=== PATIENT | female | born 1935 | race African-American/Black ===

== ENCOUNTER 2019-01-12 14:24 | Emergency (ER) | payer MEDICARE, MEDICAID ==
[~2019-01-12] VITALS: Ht 157.5 cm; Wt 72.6 kg
[2019-01-12] MEDS ORDERED: NORVASC10 MG GT (14:30)
[2019-01-12] MEDS ORDERED: ELIQUIS2.5 MG GT (14:30)
[2019-01-12] MEDS ORDERED: LAMICTAL25 MG GT (14:30)
[2019-01-12] MEDS ORDERED: LIPITOR20 MG GT (14:30)
[2019-01-12] MEDS ORDERED: INSPRA25 MG GT (14:30)
[2019-01-12] MEDS ORDERED: METOPROLOL TART25 MG GT (14:30)
[2019-01-12] MEDS ORDERED: SENOKOT8.6 MG GT (14:30)
--- NOTE | 2019-01-12 14:30 | NUR ---
ED Nurse Note: Patient brought in by ambulance from [facility] due to witnessed focal motor seizure in bed. patient was given versed 5mg en route by EMS. Patient is noted to have musle tremors on left side.
[2019-01-12 14:31] VITALS: BP 105/58
--- NOTE | 2019-01-12 14:34 | Emergency Room Report ---
History of Present Illness General Chief Complaint: Seizure Source: Patient, Medical Record, EMS Present Illness HPI 83-year-old female presents with seizure prior to arrival, patient takes Lamictal daily, her last dose was yesterday, patient did not receive her Lamictal today, had a seizure of her left arm, lasted greater than 15 minutes, terminated with Versed given by EMS, patient is currently postictal, she is responsive, limited by her postictal state, collateral history is obtained from EMS and the medical record. Patient had a seizure prior to arrival, severity was severe, aggravated by not taking medications, alleviated by taking medications. Allergies: Coded Allergies: NSAIDS (NON-STEROIDAL ANTI-INFLAMMA (Verified Allergy, Unknown, 01/12/19) Patient History Limited by: medical condition - Postictal Past Medical History: see triage record Now: No Reviewed Nursing Documentation: PMH: Agreed; PSxH: Agreed Nursing Documentation-PMH Past Medical History: No History, Except For Hx Cardiac Problems: Yes - A-FIB, CHF Hx Neurological Problems: Yes - EPILEPSY, HEMIPLEGIA Hx Cerebrovascular Accident: Yes Review of Systems All Other Systems: limited - postictal Physical Exam Vital Signs Date Time Temp Pulse Resp B/P (MAP) Pulse Ox O2 Delivery O2 Flow Rate FiO2 01/12/19 14:21 97.9 75 18 94/55 (68) 99 Room Air Sp02 EP Interpretation: reviewed, normal General Appearance: no apparent distress, alert Head: normocephalic, atraumatic Eyes: bilateral eye PERRL, bilateral eye EOMI ENT: uvula midline, moist mucus membranes Neck: supple, thyroid normal, supple/symm/no masses Respiratory: lungs clear, no respiratory distress, no retraction, no accessory muscle use Cardiovascular #1: normal peripheral pulses, regular rate, rhythm, no edema, no gallop, no murmur Gastrointestinal: non tender, soft, no guarding, no rebound Musculoskeletal: normal inspection Neurologic: responsive - minimally responsive , other - contracted Skin: no rash, warm/dry Procedures Critical Care Time Critical Care Time Given the critical condition in which the patient arrived, the patient was immediately assessed by myself and the nurse, and cardiac monitoring initiated due to the potential for rapid decompensation of the patient's clinical condition. During the course of the patient's stay, I spent a considerable amount of time at the bedside performing serial re-evaluations of the patient's hemodynamic and clinical status because of the recognized potential threat to life or limb in this condition. I then had a chance to review not only all of the available current laboratory and radiographic studies obtained today, but I also reviewed old records available to me at the time. Additionally, any ancillary information available including events assistant records were reviewed. Sequential vital signs were obtained. Critical Care time of 30 minutes was performed exclusive of billable procedures. Patient seized, requiring ativan and lamictal. Multiple reevaluations to ensure airway protection. Dispo to [place] Medical Decision Making Diagnostic Impression: Primary Impression: Seizure disorder Additional Impressions: Epileptic seizure, generalized Pneumonia UTI (urinary tract infection) Lactic acidosis ER Course Reevaluation 2:37 PM, patient found to be twitching her left face, patient most likely having another seizure, will provide patient with Ativan 2 mg, Lamictal 100 mg 2:42pm pt no longer seizing Patient will be transferred to [place], spoke with Dr. Albert at 4pm. Patient with a gag, withdrawing from pain, patient most likely minimally responsive from old stroke. Patient found to have a pneumonia and uti, abx started Laboratory Tests Test 01/12/19 14:50 01/12/19 15:20 White Blood Count 8.9 K/UL (4.8-10.8) Red Blood Count 6.39 M/UL (4.20-5.40) H Hemoglobin 16.9 G/DL (12.0-16.0) H Hematocrit 53.9 % (37.0-47.0) H Mean Corpuscular Volume 84 FL (80-99) Mean Corpuscular Hemoglobin 26.4 PG (27.0-31.0) L Mean Corpuscular Hemoglobin Concent 31.3 G/DL (32.0-36.0) L Red Cell Distribution Width 15.9 % (11.6-14.8) H Platelet Count 286 K/UL (150-450) Mean Platelet Volume 9.2 FL (6.5-10.1) Neutrophils (%) (Auto) 83.5 % (45.0-75.0) H Lymphocytes (%) (Auto) 11.0 % (20.0-45.0) L Monocytes (%) (Auto) 4.4 % (1.0-10.0) Eosinophils (%) (Auto) 0.5 % (0.0-3.0) Basophils (%) (Auto) 0.7 % (0.0-2.0) Prothrombin Time 11.0 SEC (9.30-11.50) Prothrombin Time INR 1.0 (0.9-1.1) PTT 30 SEC (23-33) Sodium Level 141 MMOL/L (136-145) Potassium Level 3.7 MMOL/L (3.5-5.1) Chloride Level 105 MMOL/L (98-107) Carbon Dioxide Level 25 MMOL/L (21-32) Anion Gap 11 mmol/L (5-15) Blood Urea Nitrogen 23 mg/dL (7-18) H Creatinine 1.3 MG/DL (0.55-1.30) Estimate Glomerular Filtration Rate mL/min (>60) Glucose Level 129 MG/DL (74-106) H Lactic Acid Level 3.10 mmol/L (0.4-2.0) H Calcium Level 9.6 MG/DL (8.5-10.1) Phosphorus Level 3.7 MG/DL (2.5-4.9) Magnesium Level 2.2 MG/DL (1.8-2.4) Total Bilirubin 0.5 MG/DL (0.2-1.0) Aspartate Amino Transferase (AST) 53 U/L (15-37) H Alanine Aminotransferase (ALT) 74 U/L (12-78) Alkaline Phosphatase 142 U/L (46-116) H Total Creatine Kinase 126 U/L (26-308) Creatine Kinase MB 7.8 NG/ML (0.0-3.6) H Creatine Kinase MB Relative Index 6.1 Troponin I 0.112 ng/mL (0.000-0.056) Pro-B-Type Natriuretic Peptide 3833 pg/mL (0-125) H Total Protein 7.3 G/DL (6.4-8.2) Albumin 2.5 G/DL (3.4-5.0) L Globulin 4.8 g/dL Albumin/Globulin Ratio 0.5 (1.0-2.7) L Lipase 137 U/L (73-393) Urine Color Yellow Urine Appearance Cloudy Urine pH 6 (4.5-8.0) Urine Specific [place] 1.015 (1.005-1.035) Urine Protein 4+ (NEGATIVE) H Urine Glucose (UA) Negative (NEGATIVE) Urine Ketones Negative (NEGATIVE) Urine Blood 2+ (NEGATIVE) H Urine Nitrite Negative (NEGATIVE) Urine Bilirubin Negative (NEGATIVE) Urine Urobilinogen 1 MG/DL (0.0-1.0) H Urine Leukocyte Esterase 1+ (NEGATIVE) H Urine RBC 5-10 /HPF (0 - 2) H Urine WBC 2-4 /HPF (0 - 2) Urine Squamous Epithelial Cells Few /LPF (NONE/OCC) Urine Amorphous Sediment Many /LPF (NONE) H Urine Bacteria Moderate /HPF (NONE) H EKG Diagnostic Results EKG Time: 14:35 EP Interpretation: Ventricular paced, rate 60, left bundle branch block, neg sgarbossa criteri Rate: normal Rhythm: other - v paced ST Segments: other - LBBB, neg sgarbossa ASA given to the pt in ED: No Rhythm Strip Diag. Results Rhythm Strip Time: 14:42 EP Interpretation: yes Rate: 60 Rhythm: other - v paced Chest X-Ray Diagnostic Results Chest X-Ray Diagnostic Results : Chest X-Ray Ordered: Yes # of Views/Limited/Complete: 1 View Indication: Other - ams EP Interpretation: Yes Interpretation: other - right lobe consolidation Impression: Other - right lobe pneumonia Electronically Signed by: Rustam Majano MD Last Vital Signs Date Time Temp Pulse Resp B/P (MAP) Pulse Ox O2 Delivery O2 Flow Rate FiO2 01/12/19 14:31 97.9 60 19 105/58 99 Room Air Disposition: XFER [facility] Condition: Stable Rustam Majano MD Jan 12, 2019 14:34
[2019-01-12] MEDS ORDERED: LORazepam Inj 2mg/ml 1ml ONE (14:37)
[2019-01-12] MEDS ORDERED: LORazepam Inj 2mg/ml 1ml IV ONE (14:45)
[2019-01-12 15:01] LABS: BASOPHILS % (AUTO) 0.7 % (0.0-2.0); EOSINOPHILS % (AUTO) 0.5 % (0.0-3.0); HEMATOCRIT 53.9 % (37.0-47.0); HEMOGLOBIN 16.9 G/DL (12.0-16.0); MEAN CORPUSCULAR VOLUME 84 FL (80-99); MONOCYTES % (AUTO) 4.4 % (1.0-10.0); NEUTROPHILS % (AUTO) 83.5 % (45.0-75.0); PLATELET COUNT 286 K/UL (150-450); RED BLOOD COUNT 6.39 M/UL (4.20-5.40); RED CELL DISTRIBUTION WIDTH 15.9 % (11.6-14.8); WHITE BLOOD COUNT 8.9 K/UL (4.8-10.8)
[2019-01-12 15:16] LABS: ANION GAP 11 mmol/L (5-15); BLOOD UREA NITROGEN 23 mg/dL (7-18); CALCIUM 9.6 MG/DL (8.5-10.1); CARBON DIOXIDE 25 MMOL/L (21-32); CHLORIDE 105 MMOL/L (98-107); CREATININE 1.3 MG/DL (0.55-1.30); POTASSIUM 3.7 MMOL/L (3.5-5.1); SODIUM 141 MMOL/L (136-145)
[2019-01-12 15:28] LABS: ALANINE AMINOTRANSFERASE 74 U/L (12-78); ALBUMIN 2.5 G/DL (3.4-5.0); ALBUMIN/GLOBULIN RATIO 0.5 (1.0-2.7); ALKALINE PHOSPHATASE 142 U/L (46-116); ASPARTATE AMINO TRANSFERASE 53 U/L (15-37); BILIRUBIN,TOTAL 0.5 MG/DL (0.2-1.0); CKMB 7.8 NG/ML (0.0-3.6); CREATINE KINASE 126 U/L (26-308); PHOSPHORUS 3.7 MG/DL (2.5-4.9)
--- NOTE | 2019-01-12 15:29 | Diagnostic Imaging Report ---
Indications: Dizziness and seizure Technique: Spiral acquisitions obtained through the brain. Angled axial and coronal 5 x 5 mm slices were reconstructed. Total dose length product 1530.91 mGycm. CTDI vol(s) 70.38 mGy. Dose reduction achieved using automated exposure control Comparison: None. Findings: There is a large area of encephalomalacia involving the left occipital and posterior parietal lobes. There is also extensive low-attenuation throughout the deep white matter bilaterally, consistent with severe chronic microvascular ischemic changes. There is ex vacuo dilatation of the posterior right lateral ventricle in addition to generalized age-related enlargement of the ventricles and extra axial CSF spaces. There is also encephalomalacia of the right cerebellar hemisphere with ex vacuo dilatation of the fourth ventricle. Small focus of encephalomalacia is seen in the left posterior parietal lobe. There is an old lacunar infarct in the right basal ganglia There is a patent cavum septum pellucidum and cavum vergae. No acute intracranial hemorrhage or edema. No mass effect nor midline shift. The calvarium is intact. Visualized orbits and sinuses are unremarkable. The mastoids are clear. 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 Old infarcts also seen within the left parietal lobe, right basal ganglia and right cerebellum Extensive chronic deep white matter small vessel ischemic change Negative for acute intracranial bleed or mass effect The CT scanner at [facility] is accredited by the [employer] and the scans are performed using protocols designed to limit radiation exposure to as low as reasonably achievable to attain images of sufficient resolution adequate for diagnostic evaluation.
[2019-01-12 15:32] LABS: APPEARANCE,URINE CLOUDY; BILIRUBIN, URINE NEGATIVE (NEGATIVE); GLUCOSE, URINE (UA) NEGATIVE (NEGATIVE); KETONES,URINE NEGATIVE (NEGATIVE); LEUKOCYTE ESTERASE ,URINE 1+ (NEGATIVE); NITRITE,URINE NEGATIVE (NEGATIVE); PH,URINE 6 (4.5-8.0); PROTEIN,URINE 4+ (NEGATIVE); UROBILINOGEN,URINE 1 MG/DL (0.0-1.0)
[2019-01-12 15:35] LABS: COLOR,URINE YELLOW
[2019-01-12] MEDS ORDERED: Cefepime HCl 2 GM in D5W 55 ML IVPB ONE (16:00)
[2019-01-12] MEDS ORDERED: Vancomycin 1 GM in NS 275 ML IVPB ONE (16:00)
--- NOTE | 2019-01-12 16:28 | Diagnostic Imaging Report ---
Indication: Chest pain Technique: One view of the chest Comparison: none Findings: Heart is enlarged. Lungs pleural spaces are clear. There is a left chest bifocal pacemaker. Impression: No acute process
--- NOTE | 2019-01-12 16:29 | NUR ---
ED Nurse Note: [phone] Ivonne (son)
[2019-01-12 17:30] VITALS: BP 113/66
[2019-01-12] MEDS ORDERED: levETIRAcetam 1,000mg/NS100ml 100 ML IVPB ONE (17:45)
[2019-01-12 18:17] VITALS: BP 113/65
--- NOTE | 2019-01-12 18:36 | NUR ---
Patient accepted to [facility] Accepting is call report [phone] [id number]
--- NOTE | 2019-01-12 18:57 | NUR ---
ED Nurse Note: Ian KUHN will be receiving report, Ian KUHN is not available at this time.
--- NOTE | 2019-01-12 19:05 | NUR ---
HAND-OFF: Report given to Kelly KUHN .
--- NOTE | 2019-01-12 19:09 | NUR ---
ED Nurse Note: report received from BAM Hill
[2019-01-12 19:24] VITALS: BP 109/69
--- NOTE | 2019-01-12 19:24 | NUR ---
ER DISCHARGE NOTE: Patient is was picked up by [facility] ambulance unit # [id number]. [facility] [place] [facility] report was given to BAM Sosa. Pt VSS bp 109/69, 98.0, 62,
--- NOTE | 2019-01-12 19:25 | NUR ---
ED Nurse Note: report given to Ian KUHN, ambulance is here for the patient, endorsed all plan of care to Ian KUHN, as well as to Kelly. BAM.
== END 2019-01-12 19:24 | disposition short-term general hospital (02) ==
LOC: EDBD 14:24 → EMR 14:52
DX: G40.909 Epilepsy, unspecified, not intractable, without status epilepticus (principal); J18.9 Pneumonia, unspecified organism; N39.0 Urinary tract infection, site not specified; I48.91 Unspecified atrial fibrillation; I50.9 Heart failure, unspecified; I69.359 Hemiplegia and hemiparesis following cerebral infarction affecting unspecified side; Z88.6 Allergy status to analgesic agent; E87.2 Acidosis; Z79.899 Other long term (current) drug therapy
CPT/HCPCS: 36415; 70450; 71045; 80053; 81003; 82550; 82553; 83605; 83690; 83735; 83880; 84100; 84484; 85025; 85610; 85730; 87040; 87086; 93005; 96361; 96365; 96367; 96375; 99291; J1953; J3370; J7050

== ENCOUNTER 2019-11-06 22:36 | Inpatient (IN) | payer MEDICARE, MEDICAID ==
[~2019-11-06] VITALS: Ht 160 cm; Wt 72.6 kg
[~2019-11-06 22:36] MED LIST: ALBUTEROL2.5 MG/3 M INH; DOCUSATE SODIU100 MG ORAL; ELIQUIS2.5 MG GT; FUROSEMIDE20 M1 ORAL; INSPRA25 MG GT; LAMICTAL25 MG GT; LIPITOR20 MG GT; METOPROLOL TART25 MG GT; NORVASC10 MG GT; SENOKOT8.6 MG GT
--- NOTE | 2019-11-06 22:40 | NUR ---
ED Nurse Note: BROUGHT IN BY SAYDA RA 60 FROM [facility] C/O RESP DISTRESS SINCE 2199. PER EMS, PT SATTING AT 88% RA AT FACILITY. PT IS PRESENTED TO ED WITH NRB 15L BY EMS WITH SPO2 96%. TEMP AT BEDSIDE 102.5. ERMD MADE AWARE. BS 336. AAOX1, NONAMBULATORY.
[2019-11-06 22:43] VITALS: BP 141/68
[2019-11-06] MEDS ORDERED: ACETAMINOPHEN500 M5 GT (22:53)
[2019-11-06] MEDS ORDERED: SYMLIN600 MCG/1 SUBQ (22:53)
--- NOTE | 2019-11-06 22:55 | NUR ---
SPOKE WITH BAM VERDE OF [facility]. ASKED RN TO FAX POLST. ACCORDING TO MEHRE[facility], POLST CANNOT BE FOUND AND CODE IS UNKNOWN; STATES THAT PATIENT IS ASSUMED FULLCODE.
--- NOTE | 2019-11-06 22:55 | NUR ---
ED Nurse Note: BLOOD AND URINE COLLECTED AND SENT TO LAB. PATIENT CHANGED AND CLEANED INTO GOWN AND ON MONITOR IN DROPLET PRECAUTION ISOLATION. XR AT BEDSIDE. ABG DRAWN BY RT AT BEDSIDE.
[2019-11-06 23:00] VITALS: BP 132/66
[2019-11-06] MEDS ORDERED: Acetaminophen 650mg/20.3ml GT ONE (23:00)
--- NOTE | 2019-11-06 23:00 | NUR ---
ED Nurse Note: PER ERMD ORDER, PLACED PT ON VENTURI MASK BY RT ON 14 L SATTING AT 97%.
[2019-11-06] MEDS ORDERED: Cefepime HCl 2 GM in D5W 55 ML IVPB ONE (23:15)
[2019-11-06] MEDS ORDERED: Vancomycin 1.5 GM in NS 275 ML IVPB ONE (23:15)
--- NOTE | 2019-11-06 23:18 | Emergency Room Report ---
History of Present Illness General Chief Complaint: Dyspnea/Respdistress Source: Patient Present Illness HPI Patient was sent to the emergency room by nursing facility via paramedics With complaints of shortness of breath Patient was found to be short of breath at the nursing facility There was complaints of some questionable cough Patient has multiple comorbidities Does not provide any history And this does limit the history of present illness there was no reports of vomiting or diarrhea Patient was found to be febrile here Patient is from a nursing facility with multiple covid-19 cases Allergies: Coded Allergies: NSAIDS (NON-STEROIDAL ANTI-INFLAMMA (Verified Allergy, Unknown, 01/12/19) COVID-19 Screening Contact w/high risk pt: Yes Recent Travel to affected area: No Experienced COVID-19 symptoms?: Yes COVID-19 symptoms experienced: Fever (T>100.4F or >38C), Shortness of Breath COVID-19 Testing performed CLIPPING MARKER: No COVID-19 Screening: PUI COVID-19 Patient History Past Medical History: see triage record Reviewed Nursing Documentation: PMH: Agreed; PSxH: Agreed Nursing Documentation-PMH Past Medical History: No History, Except For Hx Cardiac Problems: Yes - CKD, A FIB Hx Hypertension: Yes Hx COPD: Yes Hx Neurological Problems: Yes - EPILEPSY, HEMIPLEGIA Hx Cerebrovascular Accident: Yes Hx Seizures: Yes Review of Systems All Other Systems: limited - Other than the ones mentioned in the history of present illness all others are reviewed however they do stay limited due to the patient's mental status Physical Exam Vital Signs Date Time Temp Pulse Resp B/P (MAP) Pulse Ox O2 Delivery O2 Flow Rate FiO2 11/06/19 22:37 99.3 60 32 141/68 (92) 97 Non-Rebreather 15.0 Sp02 EP Interpretation: reviewed, normal General Appearance: other - Tachypneic Head: normocephalic, atraumatic Eyes: bilateral eye PERRL ENT: EOM grossly intact, normal pharynx Neck: supple Respiratory: crackles, other - Tachypneic, crackles bilaterally Cardiovascular #1: regular rate, rhythm Gastrointestinal: non tender, soft, other - Feeding tube in place Musculoskeletal: other - Patient does not follow commands however moves upper extremity without focal deficit Neurologic: responsive - to physical stimuli Skin: other - Decubitus ulcer Lymphatic: no adenopathy Procedures Critical Care Time Critical Care Time 50 minutes for multiple re-evaluations critical status with respiratory distress concerning for decompensation and possible failure not including any procedural time Medical Decision Making Diagnostic Impression: Primary Impression: Pneumonia Additional Impression: CHF (congestive heart failure) ER Course Patient is a fairly complex patient with multiple differential to consideration including but not limited to cardiac cardiopulmonary and vascular emergencies Other infectious process also entertained patient is from nursing facility with known covid-19 infections Patient will have further testing performed for that is doing significantly better with oxygenation Please note that the patient has history of severe cardiomyopathy CHF also shows some evidence of CHF acutely Further hydration is limited And the sepsis protocol is limited as I feel this would be detrimental to the patient's cardiac health And could worsen the symptoms Patient receiving IV antibiotics and admitted for further care, Labs Test 11/06/19 22:43 11/06/19 22:50 11/06/19 23:00 11/07/19 00:00 Arterial Blood pH 7.512 (7.350-7.450) Arterial Blood Partial Pressure CO2 31.3 mmHg (35.0-45.0) Arterial Blood Partial Pressure O2 71.3 mmHg (75.0-100.0) Arterial Blood HCO3 24.5 mmol/L (22.0-26.0) Arterial Blood Oxygen Saturation 94.3 % (95-100) Arterial Blood Base Excess 2.2 (-2-2) Leon Test Positive White Blood Count 15.3 K/UL (4.8-10.8) Red Blood Count 5.08 M/UL (4.20-5.40) Hemoglobin 13.3 G/DL (12.0-16.0) Hematocrit 42.8 % (37.0-47.0) Mean Corpuscular Volume 84 FL (80-99) Mean Corpuscular Hemoglobin 26.2 PG (27.0-31.0) Mean Corpuscular Hemoglobin Concent 31.1 G/DL (32.0-36.0) Red Cell Distribution Width 17.0 % (11.6-14.8) Platelet Count 217 K/UL (150-450) Mean Platelet Volume 9.4 FL (6.5-10.1) Neutrophils (%) (Auto) % (45.0-75.0) Lymphocytes (%) (Auto) % (20.0-45.0) Monocytes (%) (Auto) % (1.0-10.0) Eosinophils (%) (Auto) % (0.0-3.0) Basophils (%) (Auto) % (0.0-2.0) Prothrombin Time 11.2 SEC (9.30-11.50) Prothromb Time International Ratio 1.0 (0.9-1.1) Sodium Level 143 MMOL/L (136-145) Potassium Level 5.0 MMOL/L (3.5-5.1) Chloride Level 104 MMOL/L (98-107) Carbon Dioxide Level 30 MMOL/L (21-32) Anion Gap 9 mmol/L (5-15) Blood Urea Nitrogen 77 mg/dL (7-18) Creatinine 2.2 MG/DL (0.55-1.30) Estimat Glomerular Filtration Rate 25.9 mL/min (>60) Glucose Level 332 MG/DL (74-106) Lactic Acid Level 3.40 mmol/L (0.4-2.0) 3.40 mmol/L (0.66-2.22) Calcium Level 8.7 MG/DL (8.5-10.1) Total Bilirubin 0.8 MG/DL (0.2-1.0) Aspartate Amino Transf (AST/SGOT) 155 U/L (15-37) Alanine Aminotransferase (ALT/SGPT) 103 U/L (12-78) Alkaline Phosphatase 197 U/L (46-116) Total Creatine Kinase 158 U/L (26-308) Creatine Kinase MB 1.0 NG/ML (0.0-3.6) Creatine Kinase MB Relative Index 0.6 Troponin I 0.341 ng/mL (0.000-0.056) Pro-B-Type Natriuretic Peptide 58688 pg/mL (0-125) Total Protein 7.2 G/DL (6.4-8.2) Albumin 1.5 G/DL (3.4-5.0) Globulin 5.7 g/dL Albumin/Globulin Ratio 0.3 (1.0-2.7) Lipase 288 U/L (73-393) Urine Color Yellow Urine Appearance Cloudy Urine pH 6 (4.5-8.0) Urine Specific [place] 1.010 (1.005-1.035) Urine Protein 4+ (NEGATIVE) Urine Glucose (UA) 2+ (NEGATIVE) Urine Ketones Negative (NEGATIVE) Urine Blood 3+ (NEGATIVE) Urine Nitrite Negative (NEGATIVE) Urine Bilirubin Negative (NEGATIVE) Urine Urobilinogen Normal MG/DL (0.0-1.0) Urine Leukocyte Esterase 3+ (NEGATIVE) Urine RBC 2-4 /HPF (0 - 2) Urine WBC Tntc /HPF (0 - 2) Urine Squamous Epithelial Cells Few /LPF (NONE/OCC) Urine Bacteria Many /HPF (NONE) EKG Diagnostic Results Rate: normal Rhythm: other - ventricular paced ST Segments: other - Nonspecific changes prolonged QRS consistent with paced rhythm Rhythm Strip Diag. Results EP Interpretation: yes Rate: 60 Rhythm: other - v-paced Chest X-Ray Diagnostic Results Chest X-Ray Diagnostic Results : Chest X-Ray Ordered: Yes # of Views/Limited/Complete: 1 View Indication: Shortness of Breath EP Interpretation: Yes Interpretation: other - Cardiomegaly, pulmonary congestion, bilateral markings question infiltrate versus effusion Impression: Other - Bilateral markings pulmonary congestion, consider infiltrate versus other Electronically Signed by: Sterling Pope DO Last Vital Signs Date Time Temp Pulse Resp B/P (MAP) Pulse Ox O2 Delivery O2 Flow Rate FiO2 11/06/19 22:59 60 31 Non-Rebreather 15.0 11/06/19 22:43 102.5 141/68 99 Status: improved Disposition: ADMITTED INPATIENT Condition: Serious Referrals: Jim Ellis MD (PCP) Sterling Pope DO November 06, 2019 23:18
[2019-11-06 23:19] LABS: HEMATOCRIT 42.8 % (37.0-47.0); HEMOGLOBIN 13.3 G/DL (12.0-16.0); MEAN CORPUSCULAR VOLUME 84 FL (80-99); PLATELET COUNT 217 K/UL (150-450); RED BLOOD COUNT 5.08 M/UL (4.20-5.40); WHITE BLOOD COUNT 15.3 K/UL (4.8-10.8)
[2019-11-06 23:20] LABS: APPEARANCE,URINE CLOUDY; BILIRUBIN, URINE NEGATIVE (NEGATIVE); GLUCOSE, URINE (UA) 2+ (NEGATIVE); KETONES,URINE NEGATIVE (NEGATIVE); LEUKOCYTE ESTERASE ,URINE 3+ (NEGATIVE); NITRITE,URINE NEGATIVE (NEGATIVE); PH,URINE 6 (4.5-8.0); PROTEIN,URINE 4+ (NEGATIVE); UROBILINOGEN,URINE NORMAL MG/DL (0.0-1.0)
[2019-11-06 23:22] LABS: COLOR,URINE YELLOW
[2019-11-06 23:38] LABS: ANION GAP 9 mmol/L (5-15); BLOOD UREA NITROGEN 77 mg/dL (7-18); CALCIUM 8.7 MG/DL (8.5-10.1); CARBON DIOXIDE 30 MMOL/L (21-32); CHLORIDE 104 MMOL/L (98-107); CREATININE 2.2 MG/DL (0.55-1.30); SODIUM 143 MMOL/L (136-145)
[2019-11-06 23:52] LABS: ALANINE AMINOTRANSFERASE 103 U/L (12-78); ALBUMIN 1.5 G/DL (3.4-5.0); ALBUMIN/GLOBULIN RATIO 0.3 (1.0-2.7); ALKALINE PHOSPHATASE 197 U/L (46-116); ASPARTATE AMINO TRANSFERASE 155 U/L (15-37); BILIRUBIN,TOTAL 0.8 MG/DL (0.2-1.0); CREATINE KINASE 158 U/L (26-308)
[2019-11-07] VITALS (7 sets, daily range): BP systolic 101–132; BP diastolic 53–91
--- NOTE | 2019-11-07 00:17 | NUR ---
ED Nurse Note: GAVE REPORT TO ARIELLA KUHN.
--- NOTE | 2019-11-07 00:20 | NUR ---
ED Nurse Note: LACTIC REFLEX DRAWN AND SENT TO LAB
--- NOTE | 2019-11-07 00:30 | NUR ---
TRANSFER TO FLOOR: Patient transferred to [facility] via gurney in stable condition via transport 19 protocol as ordered, per dr. Mackey . Report given to ARIELLA KUHN.
--- NOTE | 2019-11-07 00:30 | NUR ---
NURSE NOTES: received reprot from BAM Garcia of ED. Patient awake in bed, AO x 1, afebrile, mouth breather noted. On venturi mask at 14lpm saturating 96-97 %. Pt eyes and open and able to track people around her but non verbal. With left hand and right FA 20 gauges SL patent, flush and asymptomatic. With Gtube at lower quadrant stabilize and dressing intact. With walsh catheter to urine bag draining well. VS are stable for now. Needs were attended. Bed is locked and Padded side rails for seizure precaution. Alarm is on. Call lguiht within reach. Pt was asleep when LN eft the room. Continue plan of care of the patient
[2019-11-07] MEDS ORDERED: Acetaminophen 650mg/20.3ml GT PRN (02:15)
[2019-11-07] MEDS ORDERED: Albuterol ud Inhalation HHN PRN (02:15)
--- NOTE | 2019-11-07 04:40 | NUR ---
HAND-OFF: Report given to BAM Francis.
[2019-11-07] MEDS: Piperacillin/Tazobactam 3.375 GM in NS 110 ML IVPB SCH ×2 (04:57→16:36)
--- NOTE | 2019-11-07 05:00 | NUR ---
NURSE NOTES: No acute distress noted. On venturi mask, 14L, sat at 96%. Gt running at 20cc/hr, goal is 60, pt is tolerating feeding, no residual at this time. IV on R FA 20G, running NS at 125cc/hr. Will continue to monitor.
[2019-11-07] MEDS: NovoLOG Insulin Flexpen SUBQ SCH ×4 (05:33→21:13)
[2019-11-07 05:44] LABS: HEMATOCRIT 37.7 % (37.0-47.0); HEMOGLOBIN 12.7 G/DL (12.0-16.0); MEAN CORPUSCULAR VOLUME 80 FL (80-99); PLATELET COUNT 211 K/UL (150-450); RED BLOOD COUNT 4.73 M/UL (4.20-5.40); RED CELL DISTRIBUTION WIDTH 14.8 % (11.6-14.8); WHITE BLOOD COUNT 14.5 K/UL (4.8-10.8)
[2019-11-07 06:21] LABS: ALANINE AMINOTRANSFERASE 91 U/L (12-78); ALBUMIN 1.4 G/DL (3.4-5.0); ALBUMIN/GLOBULIN RATIO 0.3 (1.0-2.7); ALKALINE PHOSPHATASE 169 U/L (46-116); ANION GAP 10 mmol/L (5-15); ASPARTATE AMINO TRANSFERASE 125 U/L (15-37); BILIRUBIN,TOTAL 0.6 MG/DL (0.2-1.0); BLOOD UREA NITROGEN 77 mg/dL (7-18); CALCIUM 8.4 MG/DL (8.5-10.1); CARBON DIOXIDE 29 MMOL/L (21-32); CHLORIDE 107 MMOL/L (98-107); CREATININE 2.2 MG/DL (0.55-1.30); POTASSIUM 4.2 MMOL/L (3.5-5.1); SODIUM 146 MMOL/L (136-145)
[2019-11-07] MEDS ORDERED: NovoLOG Insulin Flexpen SUBQ SCH (06:30)
--- NOTE | 2019-11-07 07:05 | NUR ---
NURSE NOTES: Left a message to Dr. Gaona, regarding trending up troponin. Pt A-paced. No acute distress noted at this time. Will continue to monitor.
--- NOTE | 2019-11-07 07:20 | NUR ---
NURSE NOTES: RECEIVED REPORT FROM JOSE KUHN OF [employer]NER STAFF. RECEIVED PT ON DROPLET PRECAUTION ROOM ,R/O FOR COVID-19. RECEIVED PT WITH HOB ELEVATED 45 DEGREE NON-VERBAL USING VENTI-MASK @ 40% .PT SAT 96% AT THIS TIME. PT WITH GTF PATENT RECEIVING GLUCERNA 1.2 @ 20CC/HRS TOLERATING WELL,NO RESIDUAL NOTED AT THIS TIME. FULL BODY ASSESSMENT DONE. PT REPOSITIONED IN BED Q 2HRS TO PROVIDE COMFORT AND TO PREVENT SKIN BRODY DOWN.NO ACUTE DISTRESS NOTED AT THIS TIME . WILL CONT TO MONITOR.
--- NOTE | 2019-11-07 07:31 | NUR ---
HAND-OFF: Report given to BAM Katz. Addendum: 11/07/19 at 0732 by Joie Gandhi RN Note done by Joie Gandhi.
--- NOTE | 2019-11-07 08:07 | NUR ---
RD ASSESSMENT & RECOMMENDATIONS SEE CARE ACTIVITY FOR COMPLETE ASSESSMENT DAILY ESTIMATED NEEDS: Needs based on Pulmonary/ 51kg abw 25-30 kcals/kg 9168-0794 total kcals 1.25-1.5 g protein/kg 63-76 g total protein 25-30 mL/kg 0725-2453 total fluid mLs NUTRITION DIAGNOSIS: * Swallowing difficulty R/T dysphagia as evidenced by PEG dep. (CURRENT TF: Glucerna 1.2 @ 25ml/hr x 24 hrs) ENTERAL NUTRITION RECOMMENDATIONS: Glucerna 1.2 @ 50ml/hr x 24 hrs to provide 1200ml, 1440kcal, 72g prot, 966ml free water * Increase goal rate to 50ml/hr x 24 hrs * HOB over 30 degrees * Water flush of 130ml q 6 hrs ---- With improved BG rec to DC Glucerna 1.2 and start Jevity 1.2 w/ rate of 50ml/hr x24 hrs to provide 1440 kcal, 67g prot. ADDITIONAL RECOMMENDATIONS: - Maintain calibrated bed scale wts - Rec HgA1C, pt on non-carb control formula TOBACCO CUTTER - TF recs as above - F/up w/ WC eval: add ORLY BID via GT when tolerating TF at goal - Monitor lytes on lasix, replete as needed . .
[2019-11-07] MEDS: Eliquis 2.5mg tablet GT SCH ×2 (09:27→16:41)
[2019-11-07] MEDS: Docusate 100mg/10ml Liq GT SCH ×3 (09:27→16:36)
--- NOTE | 2019-11-07 09:31 | History & Physical ---
History and Physical History & Physicial 83 year old Patient was admitted from the ER with shortness of breath Patient at SNF + COVID exposure Patient has multiple comorbidities limited history CHF on imaging Allergies: NSAIDS (NON-STEROIDAL ANTI-INFLAMMA (Verified Allergy, Unknown, 01/12/19) Past Medical History: CKD, AFIB, CVA with focal garry, seizure disorder, COPD, CHF, hypertension Reviewed of systems: unable Physical WDWN deferred due to possible COVID Labs Test 11/06/19 22:43 11/06/19 22:50 11/06/19 23:00 11/07/19 00:00 Arterial Blood pH 7.512 (7.350-7.450) Arterial Blood Partial Pressure CO2 31.3 mmHg (35.0-45.0) Arterial Blood Partial Pressure O2 71.3 mmHg (75.0-100.0) Arterial Blood HCO3 24.5 mmol/L (22.0-26.0) Arterial Blood Oxygen Saturation 94.3 % (95-100) Arterial Blood Base Excess 2.2 (-2-2) Leon Test Positive White Blood Count 15.3 K/UL (4.8-10.8) Red Blood Count 5.08 M/UL (4.20-5.40) Hemoglobin 13.3 G/DL (12.0-16.0) Hematocrit 42.8 % (37.0-47.0) Mean Corpuscular Volume 84 FL (80-99) Mean Corpuscular Hemoglobin 26.2 PG (27.0-31.0) Mean Corpuscular Hemoglobin Concent 31.1 G/DL (32.0-36.0) Red Cell Distribution Width 17.0 % (11.6-14.8) Platelet Count 217 K/UL (150-450) Mean Platelet Volume 9.4 FL (6.5-10.1) Neutrophils (%) (Auto) % (45.0-75.0) Lymphocytes (%) (Auto) % (20.0-45.0) Monocytes (%) (Auto) % (1.0-10.0) Eosinophils (%) (Auto) % (0.0-3.0) Basophils (%) (Auto) % (0.0-2.0) Prothrombin Time 11.2 SEC (9.30-11.50) Prothromb Time International Ratio 1.0 (0.9-1.1) Sodium Level 143 MMOL/L (136-145) Potassium Level 5.0 MMOL/L (3.5-5.1) Chloride Level 104 MMOL/L (98-107) Carbon Dioxide Level 30 MMOL/L (21-32) Anion Gap 9 mmol/L (5-15) Blood Urea Nitrogen 77 mg/dL (7-18) Creatinine 2.2 MG/DL (0.55-1.30) Estimat Glomerular Filtration Rate 25.9 mL/min (>60) Glucose Level 332 MG/DL (74-106) Lactic Acid Level 3.40 mmol/L (0.4-2.0) 3.40 mmol/L (0.66-2.22) Calcium Level 8.7 MG/DL (8.5-10.1) Total Bilirubin 0.8 MG/DL (0.2-1.0) Aspartate Amino Transf (AST/SGOT) 155 U/L (15-37) Alanine Aminotransferase (ALT/SGPT) 103 U/L (12-78) Alkaline Phosphatase 197 U/L (46-116) Total Creatine Kinase 158 U/L (26-308) Creatine Kinase MB 1.0 NG/ML (0.0-3.6) Creatine Kinase MB Relative Index 0.6 Troponin I 0.341 ng/mL (0.000-0.056) Pro-B-Type Natriuretic Peptide 55422 pg/mL (0-125) Total Protein 7.2 G/DL (6.4-8.2) Albumin 1.5 G/DL (3.4-5.0) Globulin 5.7 g/dL Albumin/Globulin Ratio 0.3 (1.0-2.7) Lipase 288 U/L (73-393) Urine Color Yellow Urine Appearance Cloudy Urine pH 6 (4.5-8.0) Urine Specific [place] 1.010 (1.005-1.035) Urine Protein 4+ (NEGATIVE) Urine Glucose (UA) 2+ (NEGATIVE) Urine Ketones Negative (NEGATIVE) Urine Blood 3+ (NEGATIVE) Urine Nitrite Negative (NEGATIVE) Urine Bilirubin Negative (NEGATIVE) Urine Urobilinogen Normal MG/DL (0.0-1.0) Urine Leukocyte Esterase 3+ (NEGATIVE) Urine RBC 2-4 /HPF (0 - 2) Urine WBC Tntc /HPF (0 - 2) Urine Squamous Epithelial Cells Few /LPF (NONE/OCC) Urine Bacteria Many /HPF (NONE) Test 11/07/19 04:47 11/07/19 08:45 11/07/19 08:57 White Blood Count 14.5 K/UL (4.8-10.8) Red Blood Count 4.73 M/UL (4.20-5.40) Hemoglobin 12.7 G/DL (12.0-16.0) Hematocrit 37.7 % (37.0-47.0) Mean Corpuscular Volume 80 FL (80-99) Mean Corpuscular Hemoglobin 26.8 PG (27.0-31.0) Mean Corpuscular Hemoglobin Concent 33.6 G/DL (32.0-36.0) Red Cell Distribution Width 14.8 % (11.6-14.8) Platelet Count 211 K/UL (150-450) Mean Platelet Volume 7.9 FL (6.5-10.1) Neutrophils (%) (Auto) % (45.0-75.0) Lymphocytes (%) (Auto) % (20.0-45.0) Monocytes (%) (Auto) % (1.0-10.0) Eosinophils (%) (Auto) % (0.0-3.0) Basophils (%) (Auto) % (0.0-2.0) Sodium Level 146 MMOL/L (136-145) Potassium Level 4.2 MMOL/L (3.5-5.1) Chloride Level 107 MMOL/L (98-107) Carbon Dioxide Level 29 MMOL/L (21-32) Anion Gap 10 mmol/L (5-15) Blood Urea Nitrogen 77 mg/dL (7-18) Creatinine 2.2 MG/DL (0.55-1.30) Estimat Glomerular Filtration Rate 25.9 mL/min (>60) Glucose Level 217 MG/DL (74-106) Calcium Level 8.4 MG/DL (8.5-10.1) Magnesium Level 3.1 MG/DL (1.8-2.4) Total Bilirubin 0.6 MG/DL (0.2-1.0) Aspartate Amino Transf (AST/SGOT) 125 U/L (15-37) Alanine Aminotransferase (ALT/SGPT) 91 U/L (12-78) Alkaline Phosphatase 169 U/L (46-116) Troponin I 0.351 ng/mL (0.000-0.056) Pro-B-Type Natriuretic Peptide 82430 pg/mL (0-125) Total Protein 6.4 G/DL (6.4-8.2) Albumin 1.4 G/DL (3.4-5.0) Globulin 5.0 g/dL Albumin/Globulin Ratio 0.3 (1.0-2.7) Thyroid Stimulating Hormone (TSH) 1.067 uiU/mL (0.358-3.740) Lactic Acid Level 2.90 mmol/L (0.4-2.0) Arterial Blood pH 7.519 (7.350-7.450) Arterial Blood Partial Pressure CO2 34.2 mmHg (35.0-45.0) Arterial Blood Partial Pressure O2 87.1 mmHg (75.0-100.0) Arterial Blood HCO3 27.2 mmol/L (22.0-26.0) Arterial Blood Oxygen Saturation 96.4 % (95-100) Arterial Blood Base Excess 4.5 (-2-2) Leon Test Positive IMPRESSION COVID RULE OUT CHF pulmonary infiltrates CKD seizure disorder hypertension PLAN resume snf meds isolation check PCR swab ID, cardiac, renal to follow up seizure meds taper oxygen ID to comment on antibiotics impression, plan, and exam edited and reviewed in detail care discussed with Ashish Rhodes MD November 07, 2019 09:31
--- NOTE | 2019-11-07 10:14 | NUR ---
*-* INSURANCE *-* ALL AVAILABLE CLINICALS HAVE BEEN FAXED TO: [facility] (OURS) [phone] Work [phone] Work FAX [phone] FAX Addendum: 11/07/19 at 1030 by KIZZY MORAN CM PER DR. VICTORIA PATIENT IS NOT STABLE FOR TRANSFER PER SMITA JONES WILL NOT MOVE THE PATIENT UNTIL STABLE AND COVID TEST HAS BEEN RESULTED. PATIENT'S ADMISSION IS AUTHORIZED AUTH# [id number] UNTIL 10AM 11/07/19 AUTH# [id number] FOR CONTINUED ADMISSION
[2019-11-07] MEDS ORDERED: Albuterol 90mcg Inhaler 8gm INH PRN (10:15)
--- NOTE | 2019-11-07 10:15 | NUR ---
RADIOLOGY DEPT., LATE ENTRY FOR 11/05. CHEST X-RAY DONE 22:54hrs.-P.DYE
[2019-11-07] MEDS ORDERED: Hydroxychloroquine Fact Sheet MISC ONE (10:30)
--- NOTE | 2019-11-07 14:31 | NUR ---
CASE MANAGEMENT: REVIEW 83 YEAR OLD FEMALE BIBA FROM [facility] CC: RESP DISTRESS SI: PNA . CHF . COVID-19 R/O T 102.5 HR 58 RR 40 BP 141/68 SAT 97% NON-REBREATHER FLOW RATE 15.0 WBC 15.3 BUN 77 CR 2.2 GLUCOSE 332 AST 155 ALT 103 TROP I 0.341 ABG: PH 7.512 PCO2 31.3 PO2 71.3 HCO3 24.5 BASE 2.2 IS: TYLENOL 650MG GT X1 VANCOMYCIN IV X1 CEFEPIME IV X1 LASIX 20MG IV X1 PATIENT ADMITTED TO STEP DOWN UNIT 11/06/2019 DCP: PATIENT IS FROM [facility]
--- NOTE | 2019-11-07 16:25 | NUR ---
NURSE NOTES:WOUND CARE NOTES:Pt presented on admission with non-blanching erythema without induration,over scarred area from previous wound to Sacrum,R and L Buttocks. Tx.Plan:Apply Moisture Barrier Paste to sacrum. Cover with Optifoam drsg. Change every 3 days and prn. Apply Cavilon Skin Barrier to both heels. Cover each heel with Optifoam Drsg. Change every 7 days and prn. Reposition at least every 2houirs or as tolerated. Off-load heels with pillow.
--- NOTE | 2019-11-07 17:00 | Consultation ---
DATE OF CONSULTATION: 11/07/2019 INFECTIOUS DISEASES CONSULTATION CONSULTING PHYSICIAN: Sophia Zartae MD. REFERRING PHYSICIAN: Ashish Mackey MD. REASON FOR CONSULTATION: Possible COVID-19 pneumonia. HISTORY OF PRESENTING ILLNESS: This is an 83-year-old lady with history of CVA, COPD, CHF, hypertension, seizure disorder, atrial fibrillation, chronic kidney disease, who comes in with shortness of breath from a assisted facility which has had multiple COVID cases. An Infectious Diseases consultation has been obtained for antibiotics. PAST MEDICAL HISTORY: 1. History of COPD. 2. CHF. 3. Hypertension. 4. Seizures. 5. CVA. 6. Atrial fibrillation. 7. Chronic kidney disease. MEDICATIONS: As an inpatient, she is on atorvastatin, senna, albuterol Eliquis, metoprolol, amlodipine, docusate, lamotrigine, Lasix, insulin, Zosyn, Tylenol, Mylanta. ALLERGIES: NSAIDs. SOCIAL HISTORY: She is a resident of a assisted facility. Rest of the history is unknown. FAMILY HISTORY: Unknown. REVIEW OF SYSTEMS: Unable to obtain currently. PHYSICAL EXAMINATION: VITAL SIGNS: Temperature of 97, T-max of 102.5, pulse of 60, respiratory rate 18, blood pressure 112/53, O2 saturation of 96%. She is on 14 liters of oxygen with O2 saturation of 96%. Examination deferred due to possibility of COVID-19. LABORATORY AND DIAGNOSTIC DATA: White count 14.5, hemoglobin 12.7, hematocrit 37.7, MCV 80, platelet count of 211, with neutrophils of 92%. Sodium 146, potassium 4.2, chloride 107, bicarb 29, BUN 77, creatinine 2.2, glucose 217, calcium 8.4. Total bilirubin 0.6, AST 125, ALT 91, alkaline phosphatase 169. Troponin 0.351. Total protein 6.4, albumin 1.4. Lipase of 288. UA showing too numerous to count white cells. Chest x-ray showing pulmonary congestion, bilateral infiltrates versus effusion. ASSESSMENT: This is an 83-year-old lady with history of CHF, hypertension, COPD, CVA who comes in with shortness of breath: 1. Rule out COVID-19 pneumonia. There are multiple patient at assisted facility with COVID-19 pneumonia. 2. CHF. 3. Renal failure. 4. Atrial fibrillation. 5. Chronic kidney disease. 6. COPD PLAN: 1. unable to start hydroxychloroquine as QT interval is prolonged 2. Continue isolation. 3. We will follow up cultures. 4. Continue Zosyn for now. 5. will start ivermectin if COVID 19 swab is positive I would like to thank, Dr. Mackey, for this consultation. Sophia Zarate M.D. DR: Alva JOB#: [id number] CC: Ashish Mackey M.D.; Fax#: [phone] MTDD
--- NOTE | 2019-11-07 17:32 | Diagnostic Imaging Report ---
Indication: Chest Technique: One view of the chest Comparison: 06/04/2019 Findings: Bilateral interstitial and airspace, predominantly the latter, parenchymal opacities are demonstrated diffusely. This appears more extensive than seen on the previous study. The pleural spaces are clear. The heart is enlarged. There is a left chest pacemaker again demonstrated. Impression: Bilateral diffuse and extensive infiltrates versus edema. Correlate with clinical findings
--- NOTE | 2019-11-07 18:45 | Consultation ---
DATE OF CONSULTATION: 11/07/2019 CONSULTING PHYSICIAN: Link Tate MD. REFERRING PHYSICIAN: Ashish Mackey MD. REASON FOR CONSULTATION: Renal insufficiency. HISTORY OF PRESENT ILLNESS: Patient is lethargic and has severe dementia and unable to give a history. History is taken from chart review. She is transferred here with respiratory distress concern for COVID-19, possible CHF. There is a history of coronary disease, paroxysmal atrial fibrillation, pacemaker, heart failure with preserved ejection fraction, severe mitral regurgitation from hypertrophic obstructive cardiomyopathy, atrial septal defect, prior endocarditis, hypertension, dyslipidemia, stroke, epilepsy, vegetative state, gastrostomy tube feeding. She had a creatinine of 0.96 about 2 months ago. She has had a hospitalization on 09/17/2019 for hypernatremia. She has had UTI with enterococcus recently and severe sepsis. Patient is unable to give any history. ALLERGIES: To nonsteroidal anti-inflammatory agents. MEDICATIONS: In the ECF are reviewed from the transfer records include atorvastatin, chlorhexidine, clotrimazole, , DSS, Eliquis, Humalog sliding scale, Lamictal, Lasix, metoprolol, multivitamins, Norvasc, and Tylenol. PHYSICAL EXAMINATION: GENERAL: Patient is lying in bed with an oxygen mask, in moderate respiratory distress. VITAL SIGNS: Temperature 96.5, pulse 60, 98% saturation. HEAD, EYES, EARS, NOSE, AND THROAT: Eyes and mouth are closed. LUNGS: She is tachypneic. No rales or rhonchi. HEART: Regular rhythm. ABDOMEN: Soft with a G-tube. EXTREMITIES: No edema. PERTINENT LABS: Sodium 143, potassium 5, chloride 104, CO2 of 30, BUN 77, creatinine 2.2. Lactic acid 3.4. Elevated AST, ALT, and alkaline phosphatase. Troponin 0.341. BNP 43429. Albumin is 1.5. She had a blood gas 7.519, 34.2, 87.1. Urinalysis shows 4+ protein, 2+ glucose, 2 to 4 red cells, and too numerous to count white cells per high-power field. Cultures are pending. IMPRESSION: 1. Acute kidney injury. This could be related to her prior hospital stay and possibly related to prior sepsis. She could have a prerenal state and COVID pneumonia versus acute kidney injury. 2. Respiratory distress, which could be due to CHF or possible COVID. 3. History of vegetative state. 4. Severe protein-calorie malnutrition. 5. Proteinuria. 6. Diabetes. 7. History of stroke. 8. History of CHF with preserved ejection fraction. PLAN: At this time, the patient is in critical condition. Her BUN/creatinine are elevated. I would diurese her and see if she responds to treatment for CHF. In view of her underlying conditions, she is not a candidate for renal replacement therapy. Studies have been ordered. Orders updated. Patient's condition is critical. Link Tate M.D. DR: GRICEL JOB#: [id number] CC:
--- NOTE | 2019-11-07 20:00 | NUR ---
HAND-OFF: Report given to .DAVID ATKINSON RN.
[2019-11-07] MEDS ORDERED: Sennosides 8.6mg tab GT SCH (21:00)
[2019-11-07] MEDS ORDERED: Atorvastatin 20mg tab GT SCH (21:00)
--- NOTE | 2019-11-07 22:01 | NUR ---
CODE BLUE: See Code sheet which remains on paper.
--- NOTE | 2019-11-07 22:20 | NUR ---
NURSE NOTES: RIMA KUHN spoke on the phone to Moe Benedict. he stated to stop all saving measures.
--- NOTE | 2019-11-08 00:10 | NUR ---
NURSE NOTES: Jak Rosa, son of pt, signed POLST. Doctor Dominik Pat doctor signed POL
--- NOTE | 2019-11-08 00:20 | NUR ---
NURSE NOTES: called Doctor Key Curran Doctor did not answer. left a message that pt has .
--- NOTE | 2019-11-08 03:26 | Emergency Room Report ---
History of Present Illness General Chief Complaint: Dyspnea/Respdistress Source: EMS Present Illness Allergies: Coded Allergies: NSAIDS (NON-STEROIDAL ANTI-INFLAMMA (Verified Allergy, Unknown, 01/12/19) COVID-19 Screening Contact w/high risk pt: Yes Recent Travel to affected area: Yes Experienced COVID-19 symptoms?: Yes COVID-19 symptoms experienced: Fever (T>100.4F or >38C), Shortness of Breath COVID-19 Testing performed P[employer] P[employer] WORKER: No COVID-19 Screening: PUI COVID-19 Nursing Documentation-[facility] Past Medical History Deferred: Pt Cognitively Impaired Past Medical History: No History, Except For Hx Cardiac Problems: Yes Hx Hypertension: Yes Hx Pacemaker: Yes Hx COPD: Yes Hx Neurological Problems: Yes - EPILEPSY, HEMIPLEGIA Hx Cerebrovascular Accident: Yes Hx Seizures: Yes Hx Epilepsy: Yes Physical Exam Vital Signs Date Time Temp Pulse Resp B/P (MAP) Pulse Ox O2 Delivery O2 Flow Rate FiO2 11/06/19 22:37 99.3 60 32 141/68 (92) 97 Non-Rebreather 15.0 Medical Decision Making Diagnostic Impression: Primary Impression: Pneumonia Additional Impressions: CHF (congestive heart failure) Cardiac arrest Suspected severe acute respiratory syndrome coronavirus 2 (SARS-CoV-2) infection ER Course -year-old female from a half-way. She has multiple medical problems. She was admitted to the stepdown unit for sepsis and pneumonia. I responded to a CODE BLUE. Per nursing staff, she became asystolic and CPR was initiated CODE BLUE was called. On my arrival patient already received epinephrine. CPR was in progress. I was getting ready to intubate the patient when the nursing staff that family does not want her to be intubated and does not want continual CPR. Before I intubated the patient I was suctioning her and she has copious amount of secretion and thick secretion in her mouth and vocal cord area. Patient was also exposed to COVID at the half-way. I suspect that she had cold with pneumonia and ARDS. Please see nursing note and code sheet for full list of medication and time given. Patient pronounced at 10:20 PM. Last Vital Signs Date Time Temp Pulse Resp B/P (MAP) Pulse Ox O2 Delivery O2 Flow Rate FiO2 11/07/19 20:52 63 101/55 11/07/19 20:00 97.9 20 99 11/07/19 20:00 14.0 11/07/19 20:00 Venturi Mask Status: other Disposition: ADMITTED INPATIENT Condition: Referrals: Jim Ellis MD (PCP) Kahlil Ortega MD November 08, 2019 03:26
--- NOTE | 2019-11-08 08:53 | General Progress Note ---
Assessment/Plan Assessment/Plan: IMPRESSION COVID RULE OUT CHF pulmonary infiltrates CKD seizure disorder hypertension patient family aware per nursing Subjective Allergies: Coded Allergies: NSAIDS (NON-STEROIDAL ANTI-INFLAMMA (Verified Allergy, Unknown, 01/12/19) Objective Last 24 Hour Vital Signs Date Time Temp Pulse Resp B/P (MAP) Pulse Ox O2 Delivery O2 Flow Rate FiO2 11/07/19 20:52 63 101/55 11/07/19 20:00 97.9 60 20 126/72 (90) 99 11/07/19 20:00 14.0 11/07/19 20:00 Venturi Mask 14.0 11/07/19 16:40 61 132/75 11/07/19 16:00 60 11/07/19 16:00 14.0 11/07/19 16:00 Venturi Mask 14.0 11/07/19 15:47 97.7 61 21 132/75 (94) 98 11/07/19 12:00 14.0 11/07/19 12:00 96.8 63 22 129/71 (90) 97 11/07/19 12:00 Venturi Mask 14.0 11/07/19 11:48 60 11/07/19 09:28 60 112/53 11/07/19 09:27 60 112/53 Intake and Output 11/07/19 11/08/19 19:00 07:00 Intake Total 625.0 ml Output Total 751 ml Balance -126.0 ml Intake Free Water 150 ml IV Total 165.0 ml Tube Feeding 310 ml Output Urine Total 750 ml Stool Total 1 ml # Bowel Movements 1 Laboratory Tests 11/07/19 08:57: Arterial Blood pH 7.519H, Arterial Blood Partial Pressure CO2 34.2L, Arterial Blood Partial Pressure O2 87.1, Arterial Blood HCO3 27.2H, Arterial Blood Oxygen Saturation 96.4, Arterial Blood Base Excess 4.5H, Leon Test Positive Height (Feet): 5 Height (Inches): 3.00 Weight (Pounds): 160 Ashish Mackey MD November 08, 2019 08:53
--- NOTE | 2019-11-08 20:30 | Progress Note ---
DATE: 11/07/2019 CARDIOLOGY PROGRESS NOTE SUBJECTIVE: Patient remains on respiratory support, intermittently on BiPAP. PHYSICAL EXAMINATION: VITAL SIGNS: Blood pressure 112/53, heart rate 60, respiratory rate 18 to 20, she is afebrile. LUNGS: Bilateral breath sounds. Rhonchi. CARDIAC: Irregularly irregular rhythm. Normal S1 and S2. ABDOMEN: Soft. There is a G-tube intact. EXTREMITIES: There is trace dependent edema. LABORATORY DATA: White count 14.5 and hemoglobin 12.7. ABG 7.52, 34, 87. Sodium 146, potassium 4.2, bicarb 29, BUN 77, creatinine 2.2. Lactic acid 2.9. Troponin 0.351. Pro natriuretic peptide 14,000. Albumin 1.4. IMPRESSION: 1. Urinary tract infection. 2. Severe sepsis. 3. Dehydration and hypernatremia. 4. Acute on chronic renal failure. 5. Lactic acidosis. 6. Severe protein-calorie malnutrition. 7. Permanent pacemaker. 8. Paroxysmal atrial fibrillation. 9. Acute myocardial ischemia and possible [id number] myocardial infarction. 10. Transaminitis, likely due to sepsis. 11. Remains critical and guarded. PLAN: 1. Hypotonic IV fluids. 2. Hold diuresis. 3. Trend lactic acid levels. 4. Broad-spectrum antimicrobials. 5. Await final cultures. 6. Serum troponin level. 7. Nutrition by feeding tube. 8. DVT prophylaxis. 9. Continue cardioembolic prophylaxis with apixaban. 10. Maintain beta-blockade for anti-ischemic benefits. 11. Initiate diuresis once metabolic parameters have stabilized. Ajay Gaona M.D. DR: SHARIFA JOB#: [id number] CC:
--- NOTE | 2019-11-08 20:45 | Consultation ---
DATE OF CONSULTATION: 11/06/2019 CARDIOLOGY CONSULTATION CONSULTING PHYSICIAN: Ajay Gaona MD. REQUESTING PHYSICIAN: Ashish Mackey MD. REASON FOR CONSULTATION: Congestive heart failure with elevated troponin level. HISTORY OF PRESENT ILLNESS: This is a 83-year-old female who [facility] and has severe dementia. She was transferred for evaluation of respiratory distress and was noted to have a positive COVID exposure at the [facility] facility. PAST MEDICAL HISTORY: Notable for cerebrovascular disease with advanced dementia and vegetative state, pacemaker, paroxysmal atrial fibrillation, coronary artery disease, history of congestive heart failure, degenerative mitral valve disease with regurgitation, history of atrial septal defect, history of endocarditis, history of hypertrophic cardiomyopathy, hypertension, dyslipidemia, seizure disorder, dysphagia with G-tube. ALLERGIES: Include nonsteroidal anti-inflammatory drugs. MEDICATIONS: Prior to admission reviewed and reconciled. FAMILY HISTORY: Not known. SOCIAL HISTORY: Not known. REVIEW OF SYSTEMS: Not obtainable. All pertinent data is obtained from extensive review of prior hospital records and current long-term chart. A 25-minutes time spent. PHYSICAL EXAMINATION: VITAL SIGNS: Blood pressure 141/68, pulse 60, respiratory rate 31, temperature 102.5. She is on a non-rebreather mask. LUNGS: Bilateral breath sounds with rhonchi. HEART: Irregularly irregular rhythm. Normal S1, S2. ABDOMEN: Soft. G-tube intact. EXTREMITIES: Trace edema. LABORATORY AND DIAGNOSTIC DATA: ABG 7.51, 31, 71. White count 15.3, hemoglobin 13.3. Sodium 143, potassium 5, bicarb 30, BUN 77, creatinine 2.2. Lactic acid 3.4. Troponin 0.341. Pronatriuretic peptide 13,000. Urinalysis with too numerous to count white cells. IMPRESSION: 1. Acute myocardial ischemia and possible [id number] myocardial infraction. 2. Acute on chronic diastolic congestive heart failure. 3. Possible COVID-19 infection. 4. Urinary tract infection with sepsis. 5. Acute renal failure. 6. Hypovolemia and dehydration. 7. Paroxysmal atrial fibrillation. 8. Permanent pacemaker. 9. Cerebrovascular disease with chronic vegetative state. 10. Lactic acidosis. 11. Critical and guarded. PLAN: 1. Panculture. 2. Broad-spectrum antibiotics. 3. BiPAP support as needed. 4. Hold diuresis for now. 5. Hydrate initially. 6. Continue cardioembolic prophylaxis with apixaban. 7. Further recommendations will follow. 8. Serial troponin levels have been ordered. 9. Advanced directives will be clarified by primary care physician. Ajay Gaona M.D. DR: Estephania JOB#: [id number] CC:
--- NOTE | 2019-11-09 12:00 | Discharge Summary ---
Discharge Summary Discharge Summary _ SUMMARY DATE OF ADMISSION: 11/06/2019 DATE OF EXPIRATION: 11/07/2019 REASON FOR ADMISSION: 83 years old female, resident of [facility], was brought in for evaluation due to shortness of breath and cough Patient with multiply chronic comorbidities, including chronic kidney disease, atrial fibrillation, pacemaker, COPD, hypertension, diabetes mellitus, seizure disorder, history of CVA with hemiplegia. Upon evaluation patient was hypoxic, requiring 100% nonrebreather mask, febrile with temperature 102.5 and tachypneic. Laboratory work-up revealed leukocytosis WBC 15.3, lactic acid 3.4. AST 155, ALT 103. BUN 77, creatinine 2.2. Glucose 332. Troponin 0.341. proBNP 57744. EKG showed ventricularly paced rhythm. Urinalysis revealed pyuria , many bacteria , +4 protein, +2 glucose. Chest x-ray revealed bilateral diffuse and extensive infiltrates versus edema. In emergency department patient pancultured , started on empiric antibiotic and admitted for further management. Patient was also swabbed for COVID-19 given that she came from facility where she was exposed to residents with diagnosed COVID-19 infection. CONSULTANTS: elementary esl teacher ID specialist Dr. Zarate cleaning validation consultant Dr. Tate HOSPITAL COURSE: Patient admitted to stepdown unit to isolation room. Per ID specialist , unable to start hydroxychloroquine given that QT interval was prolonged. Supplemental oxygen provided and titrated to keep oximetry above 92% ; pulmonary toilet provided. Venous Duplex BLE was ordered. Patient started on empiric antibiotic as per ID specialist recommendation. Serial troponin trended. Echocardiogram revealed preserved ejection fraction of 60% with no evidence of pericardial effusion. Mild left ventricular hypertrophy noted. No evidence of wall motion abnormality to the extent visualized. Mild to moderate aortic insufficiency. Aortic stenosis. Moderate mitral and tricuspid regurgitation. Moderately elevated left atrial pressure grade 2. Right ventricular systolic pressure of 55 consistent with moderate pulmonary hypertension. Repeated troponin 0.351. Patient started on diuresis . Anticoagulation with Eliquis and beta-blockade resumed. Blood pressure was managed with calcium channel tobias beta-tobias. Statin continued. Aspiration precaution maintained. Renal parameters and electrolytes were closely monitored . Certified Ophthalmic Surgical Assistant recommended diuresis tosee if creatinine improves. Patient was not a candidate for renal replacement therapy. Urine studies were ordered. Blood culture revealed Staph coag negative . Urine culture revealed Strep species beta-hemolytic . Repeated lactic acid remained elevated. Patient was followed-up with ABG . Patient was able to be weaned from the nonrebreather mask to Venturi mask. CODE ZHENG was called on 11/06 since patient went to asystole. ACLS protocol initiated. Emergency room physician was getting ready to intubate patient , when the nursing staff informed him, that family did not want her to be intubated and d id not want to continue with CPR . Patient was pronounced at 10:20 PM 11/06 Cause of :cardiopulmonary arrest . Of note, at the time of this dictation SARS COV 2 by PCR result back and was postiive FINAL DIAGNOSES: Status post cardiopulmonary arrest Confirmed COVID-19 pneumonia Acute on chronic diastolic congestive heart failure Acute myocardial ischemia, possible NSTEMI Sepsis UTI Paroxysmal atrial fibrillation Acute renal failure on chronic kidney disease Permanent pacemaker Cerebrovascular disease with chronic vegetative state Lactic acidosis Seizure disorder Hypertension I have been assigned to dictate discharge summary for this account. I was not involved in the patient's management. Shoshana Chow NP November 09, 2019 11:59
--- NOTE | 2019-11-09 13:19 | NUR ---
*-* INSURANCE *-* DISCHARGE SUMMARY HAS BEEN FAXED TO: ROBERT (JAYDE) [phone] Work [phone] Work FAX [phone] FAX
== END 2019-11-07 22:20 | disposition expired | DRG 871 ==
LOC: EDBD 22:36 → EMR 22:45 → 2W 23:43 → EDBEDREQ 23:59
PROC: 5A12012 Performance of Cardiac Output, Single, Manual (ICD-10-PCS; principal; 2019-11-07)
DX: A41.89 Other specified sepsis (principal); U07.1 COVID-19; I21.4 Non-ST elevation (NSTEMI) myocardial infarction; I50.33 Acute on chronic diastolic (congestive) heart failure; E43 Unspecified severe protein-calorie malnutrition; J12.89 Other viral pneumonia; I13.0 Hypertensive heart and chronic kidney disease with heart failure and stage 1 through stage 4 chronic kidney disease, or unspecified chronic kidney disease; N39.0 Urinary tract infection, site not specified; N17.9 Acute kidney failure, unspecified; R40.3 Persistent vegetative state; Z43.1 Encounter for attention to gastrostomy; I69.398 Other sequelae of cerebral infarction; I48.0 Paroxysmal atrial fibrillation; N18.9 Chronic kidney disease, unspecified; Z88.6 Allergy status to analgesic agent; I35.0 Nonrheumatic aortic (valve) stenosis; I34.0 Nonrheumatic mitral (valve) insufficiency; I36.1 Nonrheumatic tricuspid (valve) insufficiency; I27.20 Pulmonary hypertension, unspecified; Z79.01 Long term (current) use of anticoagulants; Z95.0 Presence of cardiac pacemaker; G40.909 Epilepsy, unspecified, not intractable, without status epilepticus; Z79.4 Long term (current) use of insulin; F03.90 Unspecified dementia, unspecified severity, without behavioral disturbance, psychotic disturbance, mood disturbance, and anxiety; R13.10 Dysphagia, unspecified; E11.22 Type 2 diabetes mellitus with diabetic chronic kidney disease
CPT/HCPCS: 36415; 36600; 71045; 80053; 81003; 82550; 82553; 82803; 82962; 83605; 83690; 83735; 83880; 84443; 84484; 85007; 85025; 85610; 87040; 87081; 87086; 87635; 93005; 93306; 96365; 96368; 96375; 99291; J0171; J1815; J7030